=== PATIENT | male | born 1945 ===

== ENCOUNTER 2024-10-17 11:03 | Outpatient (OUT) | payer SELFPAY ==
--- NOTE | 2024-10-17 11:05 | XR_ITS ---
The [address] [address] Patient Name: ANAMIKA JOHNSON MRN: [id number] date: 1945 Sex: M Assigned Patient Location: RAD Current Patient Location: RAD Accession/Order Number: [id number] Exam Date: 10/17/2024 11:05 Report Date: 10/17/2024 11:58 At the request of: WANDA DANIEL Procedure: XR foot CLAUDY min 3V EXAMINATION: XR foot CLAUDY min 3V HISTORY: Bilateral Foot Pain COMPARISON: No relevant comparison available. FINDINGS: RIGHT FINDINGS: BONES: No acute fracture or dislocation. Mild to moderate degenerative changes with joint space narrowing and marginal osteophyte formation significant first metatarsal-phalangeal joint SOFT TISSUES: Negative. No visible soft tissue swelling. OTHER: Negative. LEFT FINDINGS: BONES: No acute fracture or dislocation. Mild to moderate degenerative changes with joint space narrowing and marginal osteophyte formation significant first metatarsal-phalangeal joint SOFT TISSUES: Negative. No visible soft tissue swelling. OTHER: Negative. 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
== END 2024-10-17 11:04 | disposition home or self-care (01) ==
LOC: RAD 11:03
PROVIDERS: Visit Provider Podiatrist Foot & Ankle Surgery
DX: M79.672 Pain in left foot (principal); M79.671 Pain in right foot; M19.072 Primary osteoarthritis, left ankle and foot; M19.071 Primary osteoarthritis, right ankle and foot
CPT/HCPCS: 73630